=== PATIENT | male | born 1965 | race Caucasian/White ===

== ENCOUNTER → 2016-10-16 | Outpatient (CLI) | payer BC ==
[2016-10-16 13:20] LABS: BASOPHILS # (AUTO) 0.09 10*3/UL; BASOPHILS % (AUTO) 1.5 % (0-1); EOSINOPHILS % (AUTO) 10.7 % (0-8); HEMATOCRIT 46.6 % (42.0-52.0); HEMOGLOBIN 15.9 g/dL (14.0-18.0); IMM GRAN % (AUTO) 0.2 % (0-5); IMM GRAN# (AUTO) 0.01 10*3/UL; LYMPHOCYTES # (AUTO) 1.77 10*3/uL; LYMPHOCYTES % (AUTO) 29.1 % (10-50); MEAN CORPUSCULAR HEMOGLOBIN 28.4 PG (27-31); MEAN CORPUSCULAR HGB CONC 34.1 g/dL (33-37); MONOCYTES # (AUTO) 0.73 10*3/UL (0.3-0.8); NEUTROPHILS # (AUTO) 2.84 10*3/UL; NEUTROPHILS % (AUTO) 46.5 % (50-80); RDW COEFFICIENT OF VARIATION 14.5 % (11.5-14.5); WHITE BLOOD COUNT 6.09 10^3/uL (4.8-10.8)
[2016-10-16 13:27] LABS: PLATELET MORPHOLOGY COMMENT NORMAL MORPHOLOGY (NORM)
[2016-10-16 13:56] LABS: BLOOD UREA NITROGEN 18 mg/dL (7-22); CHLORIDE 108 meq/L (98-112); CREATININE 0.8 mg/dL (0.70-1.50); EST GLOMERULAR FILTRATION > 60 (>60 ml/min/1.73m(2)); POTASSIUM 4.6 meq/L (3.8-5.2); SODIUM 142 meq/L (135-145)
[2016-10-16 13:57] LABS: ASPARTATE AMINO TRANSFERASE 18 IU/L (21-57); BILIRUBIN,TOTAL 0.5 mg/dL (0.3-1.2); C-REACTIVE PROTEIN 0.3 mg/dL (0.0-0.9); CALCIUM 9.5 mg/dL (8.7-10.7); GLUCOSE 94 mg/dL (78-110)
[2016-10-16 13:58] LABS: TOTAL PROTEIN 7.3 g/dL (6.1-8.0)
[2016-10-16 15:01] LABS: ERYTHROCYTE SEDIMENTATION RATE 3 MM/HR (0-15)
== END ==
LOC: LAB 12:59
PROVIDERS: ATTEND Internal Medicine
DX: M46.42 Discitis, unspecified, cervical region (principal)
CPT/HCPCS: 36415; 80053; 85025; 85652; 86140

== ENCOUNTER → 2016-10-20 | Outpatient (CLI) | payer BC | LOC: IV THERAPY 17:44 | PROVIDERS: ATTEND Personal Emergency Response Attendant | DX: S11.80XD Unspecified open wound of other specified part of neck, subsequent encounter (principal); Z48.00 Encounter for change or removal of nonsurgical wound dressing | CPT/HCPCS: 99211 ==

== ENCOUNTER → 2016-10-30 | Outpatient (CLI) | payer BC ==
[2016-10-30 16:45] LABS: HEMATOCRIT 48.7 % (42.0-52.0); HEMOGLOBIN 16.6 g/dL (14.0-18.0); MEAN CORPUSCULAR HEMOGLOBIN 28.3 PG (27-31); MEAN CORPUSCULAR HGB CONC 34.1 g/dL (33-37); MEAN PLATELET VOLUME 10.3 FL (7.4-12.2); RDW COEFFICIENT OF VARIATION 14.1 % (11.5-14.5); RED BLOOD COUNT 5.86 10^6/uL (4.70-6.10); WHITE BLOOD COUNT 5.75 10^3/uL (4.8-10.8)
[2016-10-30 16:58] LABS: ASPARTATE AMINO TRANSFERASE 26 IU/L (21-57); BILIRUBIN,TOTAL 0.6 mg/dL (0.3-1.2); BLOOD UREA NITROGEN 14 mg/dL (7-22); C-REACTIVE PROTEIN 0.7 mg/dL (0.0-0.9); CALCIUM 10.3 mg/dL (8.7-10.7); CHLORIDE 101 meq/L (98-112); EST GLOMERULAR FILTRATION > 60 (>60 ml/min/1.73m(2)); GLUCOSE 94 mg/dL (78-110); POTASSIUM 4.4 meq/L (3.8-5.2); SODIUM 143 meq/L (135-145); TOTAL PROTEIN 8.2 g/dL (6.1-8.0)
== END ==
LOC: LAB 16:24
PROVIDERS: ATTEND Internal Medicine
DX: M46.42 Discitis, unspecified, cervical region (principal)
CPT/HCPCS: 36415; 80053; 85027; 85652; 86140

== ENCOUNTER → 2016-11-08 | Outpatient (CLI) | payer BC ==
[2016-11-08 14:31] LABS: HEMOGLOBIN 15.9 g/dL (14.0-18.0); MEAN CORPUSCULAR HEMOGLOBIN 28.6 PG (27-31); MEAN CORPUSCULAR HGB CONC 33.8 g/dL (33-37); MEAN PLATELET VOLUME 10.6 FL (7.4-12.2); RDW COEFFICIENT OF VARIATION 14.1 % (11.5-14.5); RED BLOOD COUNT 5.56 10^6/uL (4.70-6.10); WHITE BLOOD COUNT 6.84 10^3/uL (4.8-10.8)
[2016-11-08 15:06] LABS: ASPARTATE AMINO TRANSFERASE 26 IU/L (21-57); BILIRUBIN,TOTAL 0.4 mg/dL (0.3-1.2); BLOOD UREA NITROGEN 16 mg/dL (7-22); BUN/CREATININE RATIO 14.54 (6-20); C-REACTIVE PROTEIN 1.2 mg/dL (0.0-0.9); CHLORIDE 104 meq/L (98-112); CREATININE 1.1 mg/dL (0.70-1.50); EST GLOMERULAR FILTRATION > 60 (>60 ml/min/1.73m(2)); GLUCOSE 93 mg/dL (78-110); POTASSIUM 4.5 meq/L (3.8-5.2); SODIUM 145 meq/L (135-145); TOTAL PROTEIN 7.7 g/dL (6.1-8.0)
== END ==
LOC: LAB 13:56
PROVIDERS: ATTEND Internal Medicine
DX: M46.42 Discitis, unspecified, cervical region (principal)
CPT/HCPCS: 36415; 80053; 85027; 85652; 86140

== ENCOUNTER → 2016-12-04 | Outpatient (CLI) | payer BC ==
[2016-12-04 11:33] LABS: ASPARTATE AMINO TRANSFERASE 27 IU/L (21-57); BILIRUBIN,TOTAL 0.4 mg/dL (0.3-1.2); BLOOD UREA NITROGEN 15 mg/dL (7-22); CHLORIDE 104 meq/L (98-112); EST GLOMERULAR FILTRATION > 60 (>60 ml/min/1.73m(2)); GLUCOSE 80 mg/dL (78-110); POTASSIUM 3.9 meq/L (3.8-5.2); SODIUM 143 meq/L (135-145); TOTAL PROTEIN 7.5 g/dL (6.1-8.0)
[2016-12-04 11:42] LABS: BASOPHILS # (AUTO) 0.09 10*3/UL; BASOPHILS % (AUTO) 1.4 % (0-1); EOSINOPHILS % (AUTO) 9.9 % (0-8); HEMOGLOBIN 15.8 g/dL (14.0-18.0); IMM GRAN % (AUTO) 0.2 % (0-5); IMM GRAN# (AUTO) 0.01 10*3/UL; LYMPHOCYTES # (AUTO) 1.89 10*3/uL; LYMPHOCYTES % (AUTO) 28.9 % (10-50); MEAN CORPUSCULAR HEMOGLOBIN 28.6 PG (27-31); MEAN CORPUSCULAR HGB CONC 34.3 g/dL (33-37); MEAN PLATELET VOLUME 10.7 FL (7.4-12.2); MONOCYTES # (AUTO) 0.69 10*3/UL (0.3-0.8); MONOCYTES % (AUTO) 10.5 % (5-15); NEUTROPHILS # (AUTO) 3.22 10*3/UL; NEUTROPHILS % (AUTO) 49.1 % (50-80); RDW COEFFICIENT OF VARIATION 14.1 % (11.5-14.5); RED BLOOD COUNT 5.53 10^6/uL (4.70-6.10); WHITE BLOOD COUNT 6.55 10^3/uL (4.8-10.8)
[2016-12-04 11:51] LABS: PLATELET MORPHOLOGY COMMENT NORMAL MORPHOLOGY (NORM)
[2016-12-04 12:50] LABS: ERYTHROCYTE SEDIMENTATION RATE 2 MM/HR (0-15)
== END ==
LOC: LAB 10:48
PROVIDERS: ATTEND Family Medicine
DX: M46.42 Discitis, unspecified, cervical region (principal)
CPT/HCPCS: 36415; 80053; 85025; 85652; 86140; G0463

== ENCOUNTER → 2016-12-11 | Outpatient (CLI) | payer BC ==
[2016-12-11 11:26] LABS: HEMATOCRIT 45.3 % (42.0-52.0); HEMOGLOBIN 15.3 g/dL (14.0-18.0); MEAN CORPUSCULAR HEMOGLOBIN 28.4 PG (27-31); MEAN CORPUSCULAR HGB CONC 33.8 g/dL (33-37); MEAN PLATELET VOLUME 9.9 FL (7.4-12.2); RDW COEFFICIENT OF VARIATION 14.1 % (11.5-14.5); RED BLOOD COUNT 5.39 10^6/uL (4.70-6.10); WHITE BLOOD COUNT 6.3 10^3/uL (4.8-10.8)
[2016-12-11 11:38] LABS: ASPARTATE AMINO TRANSFERASE 23 IU/L (21-57); BILIRUBIN,TOTAL 0.5 mg/dL (0.3-1.2); BLOOD UREA NITROGEN 15 mg/dL (7-22); BUN/CREATININE RATIO 13.63 (6-20); C-REACTIVE PROTEIN 0.7 mg/dL (0.0-0.9); CALCIUM 9.4 mg/dL (8.7-10.7); CHLORIDE 105 meq/L (98-112); CREATININE 1.1 mg/dL (0.70-1.50); EST GLOMERULAR FILTRATION > 60 (>60 ml/min/1.73m(2)); GLUCOSE 113 mg/dL (78-110); POTASSIUM 4.1 meq/L (3.8-5.2); SODIUM 143 meq/L (135-145); TOTAL PROTEIN 7.2 g/dL (6.1-8.0)
== END ==
LOC: LAB 11:05
PROVIDERS: ATTEND Internal Medicine
DX: M46.42 Discitis, unspecified, cervical region (principal)
CPT/HCPCS: 36415; 80053; 85027; 85652; 86140

== ENCOUNTER 2016-12-12 23:20 | Emergency (ER) | payer BC ==
[2016-12-12 23:30] VITALS: TEMP 97
[2016-12-12] MEDS ORDERED: HYDROmorphone 2 MG/1 ML IVP ONE (23:51)
[2016-12-12] MEDS ORDERED: Sodium Chloride 0.9% 1,000 ML PRIMARY IV ONE (23:51)
[2016-12-12] MEDS ORDERED: ONDANSETRON 4 MG/2 ML VIAL IVP ONE (23:51)
[2016-12-12] MEDS ORDERED: NORMAL SALINE 10 ML SYRINGE FLUSH IVP PRN (23:51)
[2016-12-12] MEDS ORDERED: KETOROLAC 30 MG/1 ML VIAL IVP ONE (23:51)
[2016-12-12] MEDS ORDERED: TAMSULOSIN 0.4 MG CAPSULE PO ONE (23:53)
[2016-12-13 00:16] LABS: EOSINOPHILS % (AUTO) 4.5 % (0-8); HEMATOCRIT 44.7 % (42.0-52.0); HEMOGLOBIN 15.3 g/dL (14.0-18.0); IMM GRAN % (AUTO) 0.1 % (0-5); IMM GRAN# (AUTO) 0.01 10*3/UL; LYMPHOCYTES # (AUTO) 1.26 10*3/uL; LYMPHOCYTES % (AUTO) 12.6 % (10-50); MEAN CORPUSCULAR HEMOGLOBIN 28.2 PG (27-31); MEAN CORPUSCULAR HGB CONC 34.2 g/dL (33-37); MEAN PLATELET VOLUME 10.3 FL (7.4-12.2); MONOCYTES # (AUTO) 0.68 10*3/UL (0.3-0.8); MONOCYTES % (AUTO) 6.8 % (5-15); NEUTROPHILS # (AUTO) 7.51 10*3/UL; RED BLOOD COUNT 5.42 10^6/uL (4.70-6.10); WHITE BLOOD COUNT 10.01 10^3/uL (4.8-10.8)
[2016-12-13 00:19] LABS: PLATELET MORPHOLOGY COMMENT NORMAL MORPHOLOGY (NORM)
[2016-12-13 00:24] LABS: AMYLASE 50 U/L (30-110); ASPARTATE AMINO TRANSFERASE 24 IU/L (21-57); BILIRUBIN,TOTAL 0.4 mg/dL (0.3-1.2); BLOOD UREA NITROGEN 19 mg/dL (7-22); CALCIUM 9.9 mg/dL (8.7-10.7); CHLORIDE 104 meq/L (98-112); EST GLOMERULAR FILTRATION > 60 (>60 ml/min/1.73m(2)); GLUCOSE 105 mg/dL (78-110); POTASSIUM 3.9 meq/L (3.8-5.2); SODIUM 140 meq/L (135-145); TOTAL PROTEIN 7.4 g/dL (6.1-8.0)
[2016-12-13] MEDS ORDERED: IPRATROPIUM/ALBUTEROL SULFATE 3 ML NEB NEB ONE ×2 (01:20→01:25)
[2016-12-13 01:35] LABS: BILIRUBIN,URINE NEGATIVE (NEG); CLARITY,URINE CLEAR (CLEAR); GLUCOSE, URINE (UA) NEGATIVE (NEG); LEUKOCYTE ESTERASE ,URINE NEGATIVE (NEG); NITRATE,URINE NEGATIVE (NEG); OCCULT BLOOD,URINE MODERATE (NEG); PH,URINE 6.5 (5.0-8.5); PROTEIN,URINE NEGATIVE (NEG); UROBILINOGEN,URINE 0.2 EU/dL (0.2)
--- NOTE | 2016-12-13 01:40 | DI ---
HISTORY: Abdominal pain. COMPARISON: None available. TECHNIQUE: Contiguous axial enhanced images of the abdomen and pelvis were obtained from the lung ba ses through the ischial tuberosities. The images were then submitted for interpretation. FINDINGS: The heart size is normal, and the lung bases are clear. The liver and spleen are normal in size and contour and demonstrate no focal abnormalities. There ar e no calcified gallstones identified. There is minimal stranding in the region of the pancreas. The kidneys are in anatomic position. There is evidence of a 1 mm stone in the right orifice with mild hydroureter and hydronephrosis. The visualized vascular structures are normal. Constipation is visualized. There is possible sympathetic gastritis and duodenitis. IMPRESSION: 1. Evidence of a 1 mm stone in the right orifice with mild hydroureter and hydronephrosis. 2. There is minimal stranding in the region of the pancreas. Please correlate with history to exclud e pancreatitis. 3. Possible sympathetic gastritis and duodenitis. 4. Constipation. NOTIFICATION: The above findings were phoned to Berry Nicholson in the ER Department on 12/13/2016 at 03: 50 AM EST.
[2016-12-13 01:49] LABS: URINE SAMPLE TYPE CLEAN CATCH URINE
[2016-12-13 01:50] LABS: BACTERIA,URINE RARE; SQUAMOUS EPITHELIAL CELL,UR RARE
[2016-12-13] MEDS ORDERED: HEPARIN 500 UNIT/5 ML SYRINGE FOR CENTRAL LINE IVP ONE ×2 (02:00→02:16)
[2016-12-13] MEDS ORDERED: HYDROcodone-APAP 5 MG -325 MG TABLET PO ONE (02:23)
[2016-12-13 04:09] VITALS: RESP 20
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
--- NOTE | 2016-12-14 15:29 | DI ---
ADDENDUM, 12/14/2016 3:22 PM : As part of our quality control auditor and quality process auditor process in the Department of Radiology at [facility], this examination has been reviewed. I concur with the majority of the dictated report for this study. There is no inflammatory/infiltrative change surrounding the pancreas. The gastric mucosa on the coronal scans does show enhancement and there may be mild thickening of the wall of the stomach but there is no periserosal inflammatory change. This may represent a gastritis. Also, the amount of stool in the colon is still well within normal limits and does not represent constipation. The caliber of the distal right renal calculus measures approximately 2 mm. MTDD
[2016-12-14] MEDS ORDERED: HEPARIN 500 UNIT/5 ML SYRINGE FOR CENTRAL LINE IVP ONE (23:18)
== END 2016-12-13 02:28 | disposition home or self-care (01) ==
LOC: ER 23:20
DX: N23 Unspecified renal colic (principal); M54.5 Low back pain
CPT/HCPCS: 74178; 80053; 81001; 81003; 82150; 83690; 85025; 94640; 96360; 96361; 99283 ×2; J1885; J7620; J1170; J2405; J7030

== ENCOUNTER 2016-12-14 22:33 | Emergency (ER) | payer BC, OTHER ==
[2016-12-14] MEDS ORDERED: Sodium Chloride 0.9% 1,000 ML PRIMARY IV ONE ×2 (22:48→23:09)
[2016-12-14] MEDS ORDERED: NORMAL SALINE 10 ML SYRINGE FLUSH IVP PRN ×2 (22:48→23:09)
[2016-12-14 22:58] VITALS: RESP 20
[2016-12-14] MEDS ORDERED: HYDROmorphone 2 MG/1 ML IVP ONE (23:09)
[2016-12-14] MEDS ORDERED: KETOROLAC 30 MG/1 ML VIAL IVP ONE (23:10)
[2016-12-14] MEDS ORDERED: HEPARIN 500 UNIT/5 ML SYRINGE FOR CENTRAL LINE IVP ONE (23:20)
[2016-12-14 23:47] LABS: BASOPHILS # (AUTO) 0.02 10*3/UL; BASOPHILS % (AUTO) 0.2 % (0-1); EOSINOPHILS % (AUTO) 0.3 % (0-8); HEMATOCRIT 40.2 % (42.0-52.0); HEMOGLOBIN 13.7 g/dL (14.0-18.0); IMM GRAN % (AUTO) 0.2 % (0-5); IMM GRAN# (AUTO) 0.02 10*3/UL; LYMPHOCYTES # (AUTO) 0.96 10*3/uL; LYMPHOCYTES % (AUTO) 8.2 % (10-50); MEAN CORPUSCULAR HEMOGLOBIN 28.1 PG (27-31); MEAN CORPUSCULAR HGB CONC 34.1 g/dL (33-37); MEAN PLATELET VOLUME 10.2 FL (7.4-12.2); MONOCYTES # (AUTO) 1.52 10*3/UL (0.3-0.8); NEUTROPHILS # (AUTO) 9.11 10*3/UL; NEUTROPHILS % (AUTO) 78.1 % (50-80); RDW COEFFICIENT OF VARIATION 13.8 % (11.5-14.5); RED BLOOD COUNT 4.87 10^6/uL (4.70-6.10); WHITE BLOOD COUNT 11.67 10^3/uL (4.8-10.8)
[2016-12-14 23:57] LABS: BILIRUBIN,TOTAL 0.8 mg/dL (0.3-1.2); BUN/CREATININE RATIO 12.5 (6-20); CALCIUM 9.2 mg/dL (8.7-10.7); CREATININE 1.6 mg/dL (0.70-1.50); POTASSIUM 3.9 meq/L (3.8-5.2); TOTAL PROTEIN 7.2 g/dL (6.1-8.0)
[2016-12-15 00:03] LABS: PLATELET MORPHOLOGY COMMENT NORMAL MORPHOLOGY (NORM)
[2016-12-15 00:06] LABS: BILIRUBIN,URINE NEGATIVE (NEG); CLARITY,URINE CLEAR (CLEAR); GLUCOSE, URINE (UA) NEGATIVE (NEG); LEUKOCYTE ESTERASE ,URINE SMALL (NEG); NITRATE,URINE NEGATIVE (NEG); OCCULT BLOOD,URINE MODERATE (NEG); PH,URINE 6.5 (5.0-8.5); PROTEIN,URINE NEGATIVE (NEG); UROBILINOGEN,URINE 0.2 EU/dL (0.2)
[2016-12-15 00:12] LABS: URINE SAMPLE TYPE CLEAN CATCH URINE
[2016-12-15 00:59] VITALS: TEMP 97.7
[2016-12-15 01:27] LABS: AMYLASE 36 U/L (30-110)
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
== END 2016-12-15 02:28 | disposition home or self-care (01) ==
LOC: ER 22:33
DX: N23 Unspecified renal colic (principal); R10.11 Right upper quadrant pain; M54.89 Other dorsalgia
CPT/HCPCS: 36415; 80053; 81001; 81003; 82150; 83690; 85025; 87804; 96361; 96374; 96375; 99283 ×2; J1885; 87040; J1170; J7030

== ENCOUNTER → 2017-02-12 | Outpatient (CLI) | payer BC ==
--- NOTE | 2017-02-12 14:54 | DI ---
MRI CERVICAL SPINE W/WO CAROLA,02/12/2017 9:04 AM: Clinical History: Osteomyelitis of the cervical spine. Previous Exam: July 23, 2016 Findings: Multiplanar MR images are obtained through the cervical spine with and without contrast. 19 cc of Pro Wade were administered for contrast images. Bony alignment is anatomic and no fractures are seen. There is stable postsurgical change consistent with screw and plate fixation of C5-C7. There is also stable interbody fusion at these levels. The spinal cord descends normally with normal course, caliber and signal characteristics. The prevertebral soft tissues and the paravertebral soft tissues are unremarkable. The thyroid is als o unremarkable. There are a few cervical lymph nodes noted all of which are subcentimeter by size cri teria. The major vascular flow voids are unremarkable. The posterior fossa is unremarkable. There is no abnormal enhancement to suggest osteomyelitis. Individual intervertebral disc spaces: C2/3: No significant stenosis. C3/4: No significant stenosis. C4/5: No significant stenosis. C5/6: Postsurgical changes with no significant stenosis. C6/7: Postsurgical changes without significant stenosis. C7/T1: No significant stenosis. Impression: No MR evidence of osteomyelitis.
== END ==
LOC: MRI 09:00
PROVIDERS: ATTEND Internal Medicine
DX: M46.22 Osteomyelitis of vertebra, cervical region (principal)
CPT/HCPCS: 72156